=== PATIENT | female | born 1985 | race Caucasian/White ===

== ENCOUNTER 2016-12-30 23:21 | Emergency (ER) | payer MEDICAID ==
[~2016-12-30] VITALS: Ht 180.3 cm; Wt 154.2 kg
[2016-12-30 23:21] VITALS: BP_SYST 164
[2016-12-31] MEDS ORDERED: KETOROLAC TROMETHAMINE 60 MG/2 ML VIAL IM ONE (00:30)
[2016-12-31 01:40] VITALS: BP_SYST 138
== END 2016-12-31 01:40 | disposition home or self-care (01) ==
LOC: SED 23:21
DX: S83.91XA Sprain of unspecified site of right knee, initial encounter (principal); Z87.19 Personal history of other diseases of the digestive system; X58.XXXA Exposure to other specified factors, initial encounter; Y93.01 Activity, walking, marching and hiking; Y99.8 Other external cause status; Y92.89 Other specified places as the place of occurrence of the external cause
CPT/HCPCS: 73564; 96372; 99284; J1885

== ENCOUNTER 2020-11-20 03:32 | Emergency (ER) | payer MEDICAID ==
[~2020-11-20] VITALS: Ht 177.8 cm; Wt 145.1 kg
[2020-11-20 03:50] VITALS: BP_SYST 176
[2020-11-20] MEDS ORDERED: HYDR25TA4 PO (04:05)
[2020-11-20] MEDS ORDERED: LISI-600 PO (04:05)
[2020-11-20] MEDS ORDERED: ACETAMINOPHEN 500 MG TABLET PO ONE (04:15)
[2020-11-20] MEDS ORDERED: ACETAMINOPHEN 500 MG TABLET ONE (04:22)
[2020-11-20 05:22] VITALS: BP_SYST 172
== END 2020-11-20 05:22 | disposition home or self-care (01) ==
LOC: SED 03:32
DX: S83.92XA Sprain of unspecified site of left knee, initial encounter (principal); I10 Essential (primary) hypertension; X50.3XXA Overexertion from repetitive movements, initial encounter; Y93.89 Activity, other specified; Y92.89 Other specified places as the place of occurrence of the external cause; Y99.8 Other external cause status
CPT/HCPCS: 73564; 81025; 99283

== ENCOUNTER 2023-09-06 18:12 | Emergency (ER) | payer MEDICAID ==
[~2023-09-06] VITALS: Ht 177.8 cm; Wt 140.6 kg
[~2023-09-06 18:12] MED LIST: HYDR25TA4 PO; LISI20TA30 PO
[2023-09-06 19:13] VITALS: BP_SYST 177; PULSE 95; RESP 20; TEMP 97.5; O2SAT 98
[2023-09-06] MEDS ORDERED: NACL 0.9% 1,000 ML IV ONE (21:15)
[2023-09-06] MEDS ORDERED: ALBUTEROL SULFATE 0.083% 2.5 MG/3 ML VIAL.NEB INH ONE ×2 (21:15→21:18)
[2023-09-06] MEDS ORDERED: IPRATROPIUM BROM 0.5 MG/2.5 ML VIAL.NEB (ATROVENT) INH ONE (21:15)
[2023-09-06 21:40] LABS: BASOPHILS # (AUTO) 0.1 K/uL (0.0-0.2); BASOPHILS % (AUTO) 1.2 % (0.0-2.0); EOSINOPHILS # (AUTO) 0.3 K/uL (0.0-0.4); EOSINOPHILS % (AUTO) 2.9 % (0.0-4.0); HEMATOCRIT 38.2 % (36-48); HEMOGLOBIN 12.2 g/dL (12.0-16.0); LYMPHOCYTES # (AUTO) 1.4 K/uL (1.0-5.5); LYMPHOCYTES % (AUTO) 16.4 % (20.5-51.5); MEAN CORPUSCULAR HEMOGLOBIN 26 pg (27-31); MEAN CORPUSCULAR HGB CONC 32 % (32-36); MEAN CORPUSCULAR VOLUME 80 fL (79.0-98.0); MONOCYTES # (AUTO) 0.5 K/uL (0.0-1.0); MONOCYTES % (AUTO) 5.3 % (1.7-9.3); NEUTROPHILS # (AUTO) 6.5 K/uL (1.8-7.7); NEUTROPHILS % (AUTO) 74.2 % (40.0-70.0); PLATELET COUNT (AUTO) 328 K/uL (130-430); RED BLOOD CELL COUNT(AUTO) 4.76 MIL/uL (4.2-6.2); WHITE BLOOD COUNT (AUTO) 8.8 K/uL (4.8-10.8)
[2023-09-06 21:58] LABS: ANION GAP 7 (5-15); CARBON DIOXIDE 27 mmol/L (23-29); CHLORIDE 103 mmol/L (98-107); CREATININE 0.79 mg/dL (0.55-1.30); GFR AFRICAN AMERICAN 104 mL/min (>90); GFR NON AFRICAN-AMERICAN 86 mL/min (>90); GLUCOSE 99 mg/dL (74-106); SODIUM SERUM 137 mmol/L (136-145); UREA NITROGEN, BLOOD 13 mg/dL (8-21)
[2023-09-06] MEDS ORDERED: LABETALOL HCL 20 MG/4 ML CARTRIDGE IVP ONE (22:00)
[2023-09-06 22:01] LABS: POTASSIUM 4.4 mmol/L (3.5-5.1)
[2023-09-06 22:05] LABS: ALANINE AMINOTRANSFERASE 25 U/L (12-78); ALBUMIN 3.1 g/dL (3.4-4.8); ASPARTATE AMINOTRANSFERASE 26 U/L (10-37); BILIRUBIN,DIRECT < 0.1 mg/dL (0.0-0.3); TOTAL BILIRUBIN 0.2 mg/dL (0.0-1.0); TOTAL PROTEIN, SERUM 7.2 g/dL (6.4-8.3)
[2023-09-06] MEDS ORDERED: ENALAPRILAT DIHYDRATE 1.25 MG/ML VIAL IVP ONE (23:30)
[2023-09-07] MEDS ORDERED: D-ME120S20 PO (01:04)
[2023-09-07] MEDS ORDERED: MED4 PO (01:04)
[2023-09-07] MEDS ORDERED: AZIT500T3 PO (01:04)
[2023-09-07 01:09] VITALS: BP_SYST 127; PULSE 80; RESP 18; TEMP 98.2; O2SAT 96
== END 2023-09-07 01:09 | disposition home or self-care (01) ==
LOC: SED 18:12
DX: J20.9 Acute bronchitis, unspecified (principal); R07.9 Chest pain, unspecified; R05.9 Cough, unspecified; R09.82 Postnasal drip; F17.200 Nicotine dependence, unspecified, uncomplicated; I10 Essential (primary) hypertension; Z68.41 Body mass index [BMI] 40.0-44.9, adult; Z79.899 Other long term (current) drug therapy
CPT/HCPCS: 99285; 96374; 71045; 96361; 96375; 80076; 80048; 83880; 85025; 84484; 36415; 93005; 94640; J7030

== ENCOUNTER 2024-01-19 00:49 | Emergency (ER) | payer MEDICAID ==
[~2024-01-19] VITALS: Ht 167.6 cm; Wt 113.4 kg
[~2024-01-19 00:49] MED LIST changes: +AZIT500T PO; +D-ME120S28 PO; +MED4 PO
[2024-01-19 01:05] VITALS: BP_SYST 180; PULSE 85; RESP 18; TEMP 97.8; O2SAT 97
[2024-01-19 02:21] LABS: COVID19 ANTIGEN SOFIA FIA NEGATIVE (NEGATIVE)
[2024-01-19 02:22] LABS: INFLUENZA TYPE A Negative (NEGATIVE); INFLUENZA TYPE B NEGATIVE (NEGATIVE)
[2024-01-19] MEDS ORDERED: D-ME120S28 PO (02:29)
== END 2024-01-19 02:37 | disposition home or self-care (01) ==
LOC: SED 00:49
DX: J06.9 Acute upper respiratory infection, unspecified (principal); F17.210 Nicotine dependence, cigarettes, uncomplicated; F12.90 Cannabis use, unspecified, uncomplicated; I10 Essential (primary) hypertension; Z20.822 Contact with and (suspected) exposure to COVID-19
CPT/HCPCS: 36415; 99283

== ENCOUNTER 2024-03-08 20:46 | Emergency (ER) | payer MEDICAID ==
[~2024-03-08] VITALS: Ht 177.8 cm; Wt 158.8 kg
[2024-03-08] MEDS: LIDOCAINE 1% 10 MG/ML, 20 ML MDV INJ ONE (21:06)
[2024-03-08 21:07] VITALS: BP_SYST 153; PULSE 93; RESP 21; TEMP 97.6; O2SAT 97
[2024-03-08] MEDS ORDERED: LIDOCAINE 1%, 20 ML MDV 20 ML ONE (21:07)
[2024-03-08] MEDS: DIPHTH,PERTUSS(ACELL),TET VAC 0.5 ML VIAL (Tdap) I.M. ONE (21:14)
[2024-03-08] MEDS ORDERED: AUG875 PO (21:20)
[2024-03-08] MEDS ORDERED: BACITRACIN 1 GM OINT TP ONE (21:21)
== END 2024-03-08 21:22 | disposition home or self-care (01) ==
LOC: SED 20:46
DX: S30.871A Other superficial bite of abdominal wall, initial encounter (principal); I10 Essential (primary) hypertension; W54.0XXA Bitten by dog, initial encounter; Y93.89 Activity, other specified; Y92.89 Other specified places as the place of occurrence of the external cause; Y99.8 Other external cause status
CPT/HCPCS: 90715; 99283; J2001

== ENCOUNTER 2024-04-03 22:10 | Emergency (ER) | payer MEDICAID ==
[~2024-04-03] VITALS: Ht 177.8 cm; Wt 154.2 kg
[~2024-04-03 22:10] MED LIST changes: +AUG875 PO
[2024-04-03 22:18] VITALS: PULSE 95; RESP 18; TEMP 97.6; O2SAT 100
[2024-04-03] MEDS: HYDROcodone/ACETAMIN 5-325 MG TAB (NORCO/ VICODIN) PO ONE (23:18)
[2024-04-03] MEDS ORDERED: HYDR-3917 PO (23:24)
[2024-04-03 23:40] VITALS: BP_SYST 148; PULSE 95; RESP 18; TEMP 97.6; O2SAT 100
== END 2024-04-03 23:40 | disposition home or self-care (01) ==
LOC: SED 22:10
DX: S93.491A Sprain of other ligament of right ankle, initial encounter (principal); M77.31 Calcaneal spur, right foot; I10 Essential (primary) hypertension; E66.01 Morbid (severe) obesity due to excess calories; Z79.899 Other long term (current) drug therapy; Z79.2 Long term (current) use of antibiotics; V89.2XXA Person injured in unspecified motor-vehicle accident, traffic, initial encounter; Y93.89 Activity, other specified; Y92.89 Other specified places as the place of occurrence of the external cause; Y99.8 Other external cause status
CPT/HCPCS: 99283